=== PATIENT | male | born 1995 | race Caucasian/White ===

== ENCOUNTER 2017-05-26 09:25 | Emergency (ER) | payer OTHER ==
[~2017-05-26] VITALS: Ht 175.3 cm; Wt 83.5 kg
[2017-05-26 09:30] VITALS: Ht 175.3 cm; Wt 83.5 kg
[2017-05-26 10:53] VITALS: BP 125/80
== END 2017-05-26 10:53 | disposition home or self-care (01) ==
LOC: ED 09:25
DX: R51 Headache (principal); R11.0 Nausea; R09.89 Other specified symptoms and signs involving the circulatory and respiratory systems
CPT/HCPCS: J1885; Q0162